=== PATIENT | female | born 1955 | race Caucasian/White ===

== ENCOUNTER 2016-06-23 12:03 | Observation (INO) ==
[2016-06-23 13:27] LABS: Basophils # 0.1 K/mcL (0.0-0.2); Basophils % 1.1 %; Eosinophils # 0.2 K/mcL (0.0-0.6); Hematocrit 39.6 % (35.3-44.9); Hemoglobin 13.2 g/dL (11.5-15.4); Immature Granulocytes % 0.4 % (0-4); Lymphocytes # 1.8 K/mcL (0.6-4.6); Lymphocytes % 32.1 %; Mean Corpuscular HGB Conc 33.3 g/dL (31.6-35.5); Mean Corpuscular Hemoglobin 28.5 pg (28.0-33.3); Mean Corpuscular Volume 85.5 fL (83.0-100.0); Mean Platelet Volume 8.9 fL (9.4-12.4); Monocytes # 0.5 K/mcL (0.0-1.3); Monocytes % 8.6 %; Neutrophils # 3.1 K/mcL (1.6-8.9); Platelet Count 270 K/mcL (140-400); Red Blood Count 4.63 M/mcL (3.82-4.97); Red Cell Distribution Width 12.8 % (11.5-14.5); Segmented Neutrophils % 54.8 %
[2016-06-23 13:31] LABS: Prothrombin Time 11.3 Seconds (9.4-12.1)
[2016-06-23 13:34] LABS: Activated Partial Thrombo Time 27.6 Seconds (26.0-36.0)
[2016-06-23 13:38] LABS: BUN/Creatinine Ratio 16 (6-26); Blood Urea Nitrogen 12 mg/dL (7-20); Calcium 9.4 mg/dL (8.6-10.8); Carbon Dioxide 29 mEq/L (19-29); Chloride 106 mEq/L (98-109); Glucose 90 mg/dL (70-99); Osmolality,Calculated 289 (280-300); Potassium 3.8 mEq/L (3.5-4.5); Sodium 140 mEq/L (136-145); eGFR For African Americans > 60 (> 60); eGFR For Non-African Americans > 60 (> 60)
[2016-06-23] MEDS ORDERED: Aspirin 81 MG TAB.CHEW PO STA (14:05)
--- NOTE | 2016-06-23 14:05 | Emergency Department Note ---
Disposition Clinical Impression: Palpitations Chest pain Qualifiers: Chest pain type: unspecified Qualified Code(s): R07.9 - Chest pain, unspecified Disposition: Admitted As Inpatient Referrals: Tima Brower Jr, MD [Primary Care Provider] - Forms: ED Satisfaction Letter Chest Pain HPI - General Chief Complaint: ED Chest Pain Stated Complaint: High HR/BP/ Chest Pain Time Seen by Provider: 06/23/16 12:55 Source: patient Limitations: no limitations Vital Signs Reviewed: Yes Nursing Notes Reviewed: Yes - History of Present Illness Pt complaint: chest pain Onset (ago): hour(s) (4) Duration: intermittent Onset: during rest Pain Location: substernal Severity scale (1-10): 2 Quality: tightness Pain Radiation: none Improves with: nothing Worsens with: nothing Associated symptoms: Denies: nausea, vomiting Treatments prior to arrival chest pain: none - Related Data Home Medications Medication Instructions Recorded Confirmed No Known Home Drugs 06/17/15 06/17/15 Allergies Allergy/AdvReac Type Severity Reaction Status Date / Time clindamycin Allergy Rash Verified 06/17/15 11:46 All systems ED: reviewed and negative except as stated. Constitutional: Denies: fever, chills, weakness Cardiovascular: Reports: chest pain, palpitations Respiratory: Denies: sputum production Gastrointestinal: Denies: abdominal pain Chest Pain PMH - Past Medical History Medical history: Reports: no medical history Surgical history: Reports: non-contributory Psychiatric history: Reports: anxiety - Social History Smoking Status: Former smoker Alcohol use: Reports: occasionally Drug use: Reports: none Physical Exam - General Limitations: no limitations General appearance: alert - Head Head exam: atraumatic, normocephalic, normal inspection - Eye Eye exam: Present: normal appearance, PERRL, EOMI - Expanded Eye Exam Pupils: Left: reactive - ENT ENT exam: normal exam, normal oropharynx, mucous membranes moist - Expanded ENT Exam External ear exam: Present: normal external inspection Mouth exam: Present: normal external inspection Teeth exam: Present: normal inspection Throat exam: Present: normal inspection - Neck Neck exam: Present: normal inspection, full ROM, trachea midline - Chest Chest inspection: Present: normal inspection, symmetric chest wall rise - Respiratory Respiratory exam: Present: normal lung sounds bilaterally - Cardiovascular Cardiovascular exam: Present: regular rate, normal rhythm, normal heart sounds - Abdominal Exam Abdominal exam: Present: soft, Non-Tender. Absent: tenderness, distention, guarding, rebound, rigidity - Extremities Exam Extremities exam: Present: normal inspection, full ROM. Absent: tenderness, pedal edema - Expanded Upper Extremity Exam Shoulder exam: Present: normal inspection, full ROM Arm exam: Present: normal inspection, full ROM Elbow exam: Present: normal inspection, full ROM Forearm/Wrist exam: Present: normal inspection, full ROM Hand exam: Present: normal inspection, full ROM Vascular exam: Normal: capillary refill, radial pulse - Expanded Lower Extremity Exam Hip/Pelvis exam: Present: normal inspection, full ROM Upper leg exam: Present: normal inspection, full ROM Knee exam: Present: normal inspection, full ROM Lower leg exam: Present: normal inspection, full ROM Ankle exam: Present: normal inspection, full ROM Foot/toe exam: Present: normal inspection, full ROM Neurovascular/Tendon exam: Absent: motor deficit, sensory deficit, tendon deficit - Back Exam Back exam: Present: normal inspection, full ROM. Absent: tenderness - Neurological Exam Neurological exam: Present: alert, oriented X3 - Expanded Neurological Exam Patient oriented to: Present: person, place, time Coma Scale Eye Opening: Spontaneous Coma Scale Motor Response: Obeys Commands Coma Scale Verbal Response: Oriented Coma Scale Total: 15 - Psychiatric Psychiatric exam: Present: normal affect, normal mood - Skin Skin exam: Present: warm, dry, intact, normal color Course Vital Signs Temperature 97.5 F L 06/23/16 12:05 Pulse Rate 86 06/23/16 12:05 Respiratory Rate 16 06/23/16 12:05 Blood Pressure 150/85 06/23/16 12:05 O2 Sat by Pulse Oximetry 100 06/23/16 12:05 Temperature 97.5 F L 06/23/16 12:05 Pulse Rate 67 06/23/16 14:01 Respiratory Rate 16 06/23/16 14:01 Blood Pressure 131/74 06/23/16 14:01 O2 Sat by Pulse Oximetry 98 06/23/16 14:01 Oxygen Delivery Oxygen Delivery Room Air Chest Pain - Differential Diagnosis Likely: pneumothorax, stable angina, unstable angina pectoris, atypical chest pain, st elevation myocardial infraction, chest pain - Medical Records Medical records reviewed: Yes I reviewed the patient's medical records. - Lab Data Lab results reviewed: Yes I reviewed the patient's lab results. Result diagrams: 06/23/16 13:10 06/23/16 13:10 Lab Results 06/23/16 06/23/16 06/23/16 Range/Units 13:10 13:10 13:10 WBC 5.7 (4.3-11.1) K/mcL RBC 4.63 (3.82-4.97) M/mcL Hgb 13.2 (11.5-15.4) g/dL Hct 39.6 (35.3-44.9) % MCV 85.5 (83.0-100.0) fL MCH 28.5 (28.0-33.3) pg MCHC 33.3 (31.6-35.5) g/dL RDW 12.8 (11.5-14.5) % Plt Count 270 (140-400) K/mcL MPV 8.9 L (9.4-12.4) fL Immature Gran % 0.4 (0-4) % Seg Neutrophils % 54.8 % Lymphocytes % 32.1 % Monocytes % 8.6 % Eosinophils % 3.0 % Basophils % 1.1 % Neutrophils # 3.1 (1.6-8.9) K/mcL Lymphocytes # 1.8 (0.6-4.6) K/mcL Monocytes # 0.5 (0.0-1.3) K/mcL Eosinophils # 0.2 (0.0-0.6) K/mcL Basophils # 0.1 (0.0-0.2) K/mcL PT 11.3 (9.4-12.1) Seconds INR 1.0 APTT 27.6 (26.0-36.0) Seconds Sodium 140 (136-145) mEq/L Potassium 3.8 (3.5-4.5) mEq/L Chloride 106 (98-109) mEq/L Carbon Dioxide 29 (19-29) mEq/L BUN 12 (7-20) mg/dL Creatinine 0.75 (0.57-1.11) mg/dL Est GFR ( Amer) > 60 (> 60) Est GFR (Non-Af Amer) > 60 (> 60) BUN/Creatinine Ratio 16 (6-26) Glucose 90 (70-99) mg/dL Calculated Osmolality 289 (280-300) Calcium 9.4 (8.6-10.8) mg/dL Troponin I (0-0.03) ng/mL 06/23/16 Range/Units 13:10 WBC (4.3-11.1) K/mcL RBC (3.82-4.97) M/mcL Hgb (11.5-15.4) g/dL Hct (35.3-44.9) % MCV (83.0-100.0) fL MCH (28.0-33.3) pg MCHC (31.6-35.5) g/dL RDW (11.5-14.5) % Plt Count (140-400) K/mcL MPV (9.4-12.4) fL Immature Gran % (0-4) % Seg Neutrophils % % Lymphocytes % % Monocytes % % Eosinophils % % Basophils % % Neutrophils # (1.6-8.9) K/mcL Lymphocytes # (0.6-4.6) K/mcL Monocytes # (0.0-1.3) K/mcL Eosinophils # (0.0-0.6) K/mcL Basophils # (0.0-0.2) K/mcL PT (9.4-12.1) Seconds INR APTT (26.0-36.0) Seconds Sodium (136-145) mEq/L Potassium (3.5-4.5) mEq/L Chloride (98-109) mEq/L Carbon Dioxide (19-29) mEq/L BUN (7-20) mg/dL Creatinine (0.57-1.11) mg/dL Est GFR ( Amer) (> 60) Est GFR (Non-Af Amer) (> 60) BUN/Creatinine Ratio (6-26) Glucose (70-99) mg/dL Calculated Osmolality (280-300) Calcium (8.6-10.8) mg/dL Troponin I 0.00 (0-0.03) ng/mL - Radiology Data Radiology results reviewed: Yes I reviewed the patient's radiology results. - EKG Data EKG attestation: Yes I reviewed and interpreted this EKG. EKG shows normal: sinus rhythm Rate: normal Rhythm: NSR Interpretation: unchanged when compared to prior tracing (date) (06/12/2016), nonspecific ST-T wave changes
[2016-06-23] MEDS ORDERED: Acetaminophen 325 MG TABLET PO PRN (14:57)
[2016-06-23] MEDS ORDERED: Naloxone 0.4 MG/ML INJ IVP PRN (14:57)
[2016-06-23] MEDS ORDERED: Famotidine 20 MG TABLET PO PRN (15:00)
--- NOTE | 2016-06-23 15:19 | Internal Med History&Physical ---
<Nicole Paz M - Last Filed: 06/23/16 23:53> Date of Encounter: 06/23/16 Time of Encounter: 15:11 Assessment and Plan (1) Chest pain Status: Acute Patient reporting chest pressure in her mid-sternum, non-radiating that comes and goes. Reports shortness of breath with exertion and while eating. EKG showed normal sinus rhythm, initial troponin negative at 0.00. D-Dimer ordered and was negative at 280. continuous cardiac care nurse serial troponins echocardiogram and stress test in the morning. Qualifiers: Chest pain type: precordial pain Qualified Code(s): R07.2 - Precordial pain (2) Fatigue Status: Acute Patient reports gradual onset of fatigue after returning from vacation sailing in the [facility]. Initially, she had symptoms including sore throat, mucous production and swollen lymph nodes, but as her other symptoms have resolved, her fatigue has worsened. A friend she was travelling with also had similar symptoms and has reportedly been to an infectious disease specialist, but patient does not know the outcome of the work up. Fatigue may be related to viral illness contracted while on vacation. She denies any fever, chills or sweats. Will rule out cardiac source with cardiac care nurse and tropons orthostatic vital signs TSH [place] test. Qualifiers: Fatigue type: unspecified Qualified Code(s): R53.83 - Other fatigue (3) Palpitations Status: Acute Patient reports being woken from sleep this morning due to palpitations, and having episodes where she checked her blood pressure and heart rate and they were elevated above normal levels, which is her usual baseline. Heart rate has been 70s-80s here today, while blood pressure is mildly elevated to 140s-150s/ 90s. EKG showed NSR. continuous cardiac care nurse serial troponins orthostatic vital signs. echocardiogram and stress test in the morning. (4) DVT prophylaxis Status: Acute Encourage ambulation anti-embolic stockings Lovenox 40m SQ daily Internal Medicine - H&P: HPI Chief complaint: palpitations, chest discomfort Admitted From: Emergency Dept Plans for Post Hospital Care: Home History of present illness: Ms. Carroll is a 60 year old female with no significant medical history who presented to the emergency department today with complaints of fatigue, comfort , shortness of breath. Patient reports she was on vacation in the [facility] and returned mid May, and has had a gradual onset of fatigue since then. She initially had upper respiratory symptoms including a sore throat, mucus production, and sinus pressure, along with swollen lymph nodes. Those symptoms have resolved except she still feels that she has swollen lymph nodes. She reports that she has had shortness of breath while eating and with activity, she has had leg weakness on and off, she had occasional lightheadedness. He reports episodes where she does not feel well when she checks her blood pressure and her heart rate or heart rate is elevated into the 1 teens and her blood pressures elevated to the 150s over 100. Her normal blood pressure is in the low 100s over 70s. She has experienced some palpitations, and actually woke this morning because of her palpitations. She reports when she is having these episodes of high blood pressure and elevated heart rate her hands and feet feel tingly and cold. She also has a feeling of pressure in her mid chest and nonradiating and it comes and goes. She denies any fever, chills, sweats, or body aches. She denies any difficulty with speaking or swallowing. She reports another person on her trip had similar symptoms and has been worked up without any outcome that she is aware. She does report having been bitten by mosquitoes while she was on her trip to the [facility]. Evaluation in the emergency department included a troponin which was negative at 0.00 EKG, that showed normal sinus rhythm. Blood work was grossly normal. On exam, patient is alert and oriented, in no acute distress. Is regular rate and rhythm. Clear bilaterally to auscultation. She has equal strength bilaterally in upper and lower extremities. Past Med Surg Social Fam HX - Past Medical History Source: patient Medical history: GERD Psychiatric history: anxiety - Past Surgical History Surgical History: no surgical history, non-contributory - Social History Smoking Status: Former smoker Smokeless Tobacco Status: No Alcohol use: occasionally Drug use: none Current living situation: Home - Independent Activity Level: Independent ambulation Recent Out of Country Travel Within the Last 8 Weeks: Yes - Family History Mother Living Status: Age at : 78 Cause of : CVA Father Living Status: Age at : 66 Cause of : Dementia Internal Medicine - H&P: Meds Ranitidine HCl [Zantac] 150 mg PO DAILY PRN 03/21/17 [History] Ativan 0.5 mg PO BID PRN #14 06/24/16 [Rx] Paroxetine HCl [Paxil] 20 mg PO DAILY #30 tablet 06/24/16 [Rx] Allergies clindamycin Allergy (Intermediate, Verified 06/23/16 16:27) Rash All Systems PM: A 10-system review of systems was performed and is negative for pertinent findings except as documented above in the HPI. - Constitutional Constitutional: fatigue, weakness, no chills, no fever(s), no night sweats - EENT Eyes: no blurry vision, no change in vision, no discharge, no pain, no photophobia Ears: no ear discharge, no ear pain, no tinnitus Nose, mouth and throat: no dysphagia, no nasal discharge, no neck pain, no sore throat Additional comments: Reports Sore throat and mucus production a couple weeks ago, now resolved. - Cardiovascular Cardiovascular ROS IM: chest pain ("pressure"), dyspnea on exertion, lightheadedness, palpitations, no diaphoresis, no dyspnea, no syncope - Respiratory Respiratory: dyspnea on exertion, no cough, no dyspnea, no wheezing, no excessive phlegm production - Gastrointestinal Gastrointestinal: nausea, no abdominal pain, no diarrhea, no hematemesis, no hematochezia, no melena, no vomiting - Genitourinary Genitourinary: no change in urinary stream, no dysuria, no flank pain, no hematuria - Musculoskeletal Musculoskeletal ROS IM: tingling (occasional tingling of hands and feet), no numbness - Integumentary Integumentary IM: no rash, no unusual bruising - Neurological Neurological ROS: no confusion, no convulsions, no focal weakness, no numbness, no tingling, no tremor(s) - Hematologic/Lymphatic Hematologic/Lymphatic: no easy bruising - Constitutional Vitals: Temp Pulse Resp BP Pulse Ox 97.5 F L 67 16 130/81 98 06/23/16 12:05 06/23/16 15:10 06/23/16 15:10 06/23/16 15:10 06/23/16 15:10 General appearance: Present: A&O X 3, pleasant, no acute distress - Head Head exam: Present: atraumatic, normocephalic - Eye Eye exam: Present: PERRL, conjuntiva pink, sclera anicteric Pupils: Present: PERRL - Neck Neck exam general surgery: Present: supple, trachea midline. Absent: lymphadenopathy - Respiratory Respiratory exam: Present: CTAB. Absent: accessory muscle use, rales, rhonchi, wheezes - Cardiovascular Cardiovascular exam: Present: RRR, +S1, +S2. Absent: diastolic murmur, gallop, rubs, systolic murmur - GI/Abdominal GI/Abdominal exam: Present: normal bowel sounds, soft, no peritoneal signs. Absent: distended, tenderness - Extremities Exam Extremities exam: Present: warm, radial pulses palpable and symetrical. Absent : calf tenderness, cyanotic, pedal edema - Neurological Exam Neurological exam: Present: CN II-XII intact, oriented X3, no focal deficits. Absent: facial droop, speech deficit - Skin Skin exam: Present: dry, intact Internal Med - H&P Results - Labs CBC & Chem 7: 06/23/16 13:10 06/23/16 13:10 <Estelle Menendez - Last Filed: 07/03/16 22:13> Date of Encounter: 07/03/16 Internal Medicine - H&P: HPI History of present illness: Ms. Carroll is a 60 year old female All Systems PM: A 10-system review of systems was performed and is negative for pertinent findings except as documented above in the HPI. - Constitutional Vitals: Temp Pulse Resp BP Pulse Ox 98.1 F 72 16 122/74 96 06/24/16 07:37 06/24/16 07:37 06/24/16 07:37 06/24/16 07:37 06/24/16 07:37 Internal Med - H&P Results - Labs CBC & Chem 7: 06/24/16 01:34 06/24/16 01:34 - Attending Attestation Patient seen and examined, agree with assessment and plan of GERONIMO Paz. Patient with palpitations and chest pain following URI she developed while traveling. D dimer negative in low risk patient, essentially ruling out PE. Will obtain stress test to rule out cardiac etiology in AM.
--- NOTE | 2016-06-23 15:52 | Electrocardiograph Report ---
[address] [address] Test Date: 2016-06-23 Pat Name: Helena Carroll Department: 102 Room: 2A Gender: F Environmental Planner: : 1955 Requested By: Heber Parada Order Number: [id number] Reading MD: Idania Roche Measurements Intervals [place] Rate: 85 P: 80 [place]: 154 QRS: 54 QRSD: 78 T: 55 QT: 347 QTc: 389 Interpretive Statements SINUS RHYTHM MINIMAL ST DEPRESSION [0.025+ mV ST DEPRESSION] Electronically Signed On 06-23-2016 15:49:56 EDT by Idania Roche
[2016-06-23] MEDS ORDERED: *HR* LORazepam 0.5 MG TABLET PO PRN (19:25)
[2016-06-24 02:08] LABS: Basophils # 0.1 K/mcL (0.0-0.2); Basophils % 0.8 %; Eosinophils # 0.2 K/mcL (0.0-0.6); Eosinophils % 3.7 %; Hematocrit 37.2 % (35.3-44.9); Hemoglobin 12.2 g/dL (11.5-15.4); Immature Granulocytes % 0.2 % (0-4); Lymphocytes # 2.5 K/mcL (0.6-4.6); Lymphocytes % 40.2 %; Mean Corpuscular HGB Conc 32.8 g/dL (31.6-35.5); Mean Corpuscular Volume 85.5 fL (83.0-100.0); Mean Platelet Volume 9.3 fL (9.4-12.4); Monocytes # 0.6 K/mcL (0.0-1.3); Neutrophils # 2.9 K/mcL (1.6-8.9); Platelet Count 235 K/mcL (140-400); Red Blood Count 4.35 M/mcL (3.82-4.97); Red Cell Distribution Width 12.7 % (11.5-14.5); Segmented Neutrophils % 46.1 %
[2016-06-24 02:24] LABS: Alanine Aminotransferase 12 Units/L (0-55); Albumin 3.4 g/dL (3.5-5.0); Albumin/Globulin Ratio 1.1 (1.1-2.2); Alkaline Phosphatase 54 Units/L (38-126); Aspartate Amino Transferase 21 Units/L (5-34); BUN/Creatinine Ratio 14 (6-26); Bilirubin,Direct 0.1 mg/dL (0.0-0.5); Bilirubin,Indirect 0.3 mg/dL (0.0-1.2); Bilirubin,Total 0.4 mg/dL (0.2-1.2); Blood Urea Nitrogen 10 mg/dL (7-20); Calcium 8.7 mg/dL (8.6-10.8); Carbon Dioxide 29 mEq/L (19-29); Chloride 107 mEq/L (98-109); Glucose 88 mg/dL (70-99); Osmolality,Calculated 294 (280-300); Potassium 4.2 mEq/L (3.5-4.5); Sodium 143 mEq/L (136-145); Total Protein 6.4 g/dL (6.0-8.3); eGFR For African Americans > 60 (> 60); eGFR For Non-African Americans > 60 (> 60)
[2016-06-24] MEDS ORDERED: *HR* Enoxaparin 40 MG/0.4 ML SYRINGE SQ SCH (07:00)
[2016-06-24 07:38] VITALS: BP 122/74
--- NOTE | 2016-06-24 10:39 | Nuclear Medicine Stress Report ---
Exercise Nuclear Stress Name: Helena Carroll Date of Study: 06/24/2016 Date: 1955 Ht: 69.0 in Medical Record#: [id number] Age: 60 Wt: 143.0 lb Gender: Female Order #: [id number] Location: [facility] Room: [facility] Supervising Provider: Jocelyne Mtz CNP Reading Physician: Vincent Benavides DO, FACC, FASE, FASNC Primary Care Physician: Tima Brower MD Stress Technologist: Scottie Rudolph KITCHEN AIDE, CCT Sewing Line Baler: Porfirio Aquino Indications: Hypertension Impression: Exercise ECG is negative for ischemia. The exercise capacity was good. Patient had no chest pain during stress. Gated EF = 75%. Perfusion imaging was negative for ischemia or infarct. Stress Test Summary: Stress Test Type: Treadmill Protocol: Tavo Baseline Information: Initial Heart Rate: 107 Blood Pressure: 136/90 Stress Information: Stress Time: 7 min 00 sec Test Terminated Due to (primary): Fatigue Maximum Blood Pressure: 158/90 Maximum Heart Rate: 139 Percent Maximum Heart Rate Achieved: 88 Double Product: 21,962 METS Reached: 10.1 Nuclear Summary: SPECT myocardial perfusion imaging using Tc99m Sestamibi given intravenously was performed at rest and following cardiac stress testing. The resting images were obtained following initial dose of 11.0 mCi. Following stress an additional dose of 35.1 mCi was given at peak exercise or 30 seconds post regadenoson infusion. Medication Given: Time Medication Dose Units Route Findings: Stress Note * Resting ECG demonstrated normal sinus rhythm. * No baseline arrhythmias were noted. * Exercise ECG is negative for ischemia. * Rare PVCs noted during stress. * The exercise capacity was good. * Patient had no chest pain during stress. * Normal hemodynamic responses to exercise. Study Quality * Study quality is average. Gated EF % * Gated EF = 75%. Left Ventricle * The left ventricle is not dilated. LVEDV = 68 mL. NORMALS * Normal wall motion. * Normal segmental perfusion in rest. * Normal segmental perfusion in stress. TID * No evidence of transient ischemic dilatation. TID ratio = 1.06. Lung Uptake * There is no evidence of increase lung uptake. Updated by Vincent Benavides DO, FACC, FASE, FASNC on 06/24/2016 10:29:18 AM electronically signed on 06/24/2016 10:33:41 AM with status of Final
--- NOTE | 2016-06-24 11:58 | ECHO - Doppler Report ---
Echo with Saline Contrast Name: Helena Carroll Date of Study: 06/23/2016 Date: 1955 Ht: 69.0 in Medical Record#: [id number] Age: 60 Wt: 140.0 lb Gender: Female BSA: 1.78 Order #: [id number] Location: [facility] Room #: 2A45 Reading Physician: Vincent Benavides DO, FACShelby, GENEVIEVE, DILLON Body Artist: Selene Sarah RDCS Ordering Physician: Nicole Paz CNP Primary Physician: Tima Brower MD Indications: Chest pressure, Dyspnea on exertion Impressions: LVEF 65%. Normal LV chamber size, wall thickness and function. Normal left ventricular diastolic function. Normal right ventricular structure and function. No evidence of PFO with agitated saline contrast. No evidence of pulmonary hypertension. No significant valvular dysfunction. Left Ventricular Wall Motion: Rest Echo Findings All wall segments showed normal motion. Findings: Study Quality * Technically adequate exam. ECG Findings * Normal sinus rhythm. Left Ventricle * LVEF 65%. * Normal LV chamber size, wall thickness and function. * Normal left ventricular diastolic function. Right Ventricle * Normal right ventricular structure and function. Left Atrium * Normal left atrial size. Right Atrium * Normal right atrial size. Interatrial Septum * No evidence of PFO with agitated saline contrast. Aortic Valve * Aortic valve not well visualized. * No aortic regurgitation. * No aortic stenosis. Mitral Valve * Normal mitral valve structure and function. * No mitral regurgitation. * No mitral stenosis. Tricuspid Valve * Normal tricuspid valve structure and function. * Trace tricuspid regurgitation. * No evidence of pulmonary hypertension. Pulmonic Valve * Pulmonic valve not well visualized. Aorta * Normally sized aortic root. Pericardium * The pericardium appears normal. IVC * Normal IVC dimensions and inspiratory collapse. Pulmonary Artery * Normal visualized portions of the main pulmonary artery. History Contrast: Agitated saline 20 ml. Measurements: BP: 130/ 81 2D Normal Values RVIDd: 1.85 cm <2.7 cm IVSd: .71 cm 0.6 - 1.0 cm LVIDd: 4.79 cm 3.7 - 5.6 cm LVPWd: .74 cm 0.6 - 1.1 cm LVIDs: 2.73 cm 1.5 - 3.6 cm AO: 3.10 cm < 4.0 cm LA: 2.70 cm 2.0 - 4.0cm %FS: 43.00 cm >25 % LA volume: 34 Mitral Valve Peak E:.88 m/sec Peak A:.72 m/sec E/A Ratio:1.2 Peak E' Lat Norbert:15.2 cm/s Peak E' Med Norbert:9.17 cm/s E/E' Lat Ratio:5.8 E/E' Med Ratio:9.6 Tricuspid Valve TV Regurg Peak Grad: 10.00mmHg TV Regurg Peak Norbert: 1.62m/sec Updated by Vincent Benavides DO, FACShelby, GENEVIEVE, DILLON on 06/24/2016 11:52:51 AM electronically signed on 06/24/2016 11:53:22 AM with status of Final Wall Motion Lennon: 1=Normal, 2=Hypokinesis, 3=Akinesis, 4=Dyskinesis, 5=Aneurysmal, 6=Hyperkinetic, X=Not Visualized (Blank)=Missing
--- NOTE | 2016-06-24 13:29 | Discharge Summary ---
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 However they do not fit the definition or symptom profile as one would expect with Zika virus (2) Chest pain Priority: Primary Status: Acute Comments: #1 echocardiogram was normal #2 stress testing was good she had good to excellent exercise capacity ECG was negative and nuclear medicine cardiac images were good as well Qualifiers: Chest pain type: precordial pain Qualified Code(s): R07.2 - Precordial pain (3) Fatigue Priority: Primary Status: Acute Qualifiers: Fatigue type: postviral fatigue syndrome Qualified Code(s): G93.3 - Postviral fatigue syndrome (4) History of gastroesophageal reflux (GERD) Priority: Secondary Status: Chronic (5) Anxiety Priority: Secondary Status: Acute Comments: She is concerned about some anxiety. She got an antianxiety medication for some resolution of some of her symptoms yesterday, give her small prescription of Ativan until she sees her primary care provider - Discharge Medications Prescriptions: Ativan 0.5 mg PO BID PRN #14 PRN Reason: Anxiety Home Medications: Ranitidine HCl [Zantac] 150 mg PO DAILY PRN 06/23/16 [History] Ativan 0.5 mg PO BID PRN #14 06/24/16 [Rx] Allergies/Adverse Reactions: Allergies clindamycin Allergy (Intermediate, Verified 06/23/16 16:27) Rash Procedures/tests Complete & Pending: Procedures Performed prior 72 hours Category Date Time Status NM chelsey perf SPECT multi [NM] Routine Exams 06/23/16 15:39 Taken EV echocardiogram Routine Y 06/23/16 15:38 Completed SP exercise nuclear stress Routine Y 06/24/16 07:30 Completed Date of admission: 06/23/16 14:34 Primary care physician: Tima Brower Jr, MD - Patient Status Disposition: Home, Self-Care Condition: Good Functional capacity at discharge: independent ambulation Overall status at discharge: patient is not back to baseline - Discharge Instructions Follow Up With: Tima Brower Jr, MD [Primary Care Provider] - 06/29/16 4:15 pm (Please follow up as schedule..with ) - Diet and Activity Activity: increase activity as tolerated, return to work once cleared by your PCP/specialist Diet: advance to your usual diet Hospital course: Ms. Carroll is a 60 year old female was admitted to the hospital started on serial troponins were unremarkable. Laboratories. Be normal. She describes chronic fatigue and just overwhelming tiredness. There is no current fever. There is no current rashes. There is no current headaches. One of the concerns I have is that one for traveling companions on her last trip come down with similar symptoms. With her current white count being normal and not decreased do think she is in a current phase of an acute viral infection. Rather I think she is in a post viral fatigue syndrome Stress testing was unremarkable. Some of the chest tightness she has not conservatively due to her past history of gastroesophageal reflux disease as she does have some chronic chest tightness from time to time that she blames on that. She is currently on some Zantac 150 twice daily. I will leave that in place for right now higher to her seeing her primary care physician soon. - Time Spent with Patient Total time spent providing and/or coordinating discharge services: - Constitutional Vitals: Temp Pulse Resp BP Pulse Ox 98.1 F 72 16 122/74 96 06/24/16 07:37 06/24/16 07:37 06/24/16 07:37 06/24/16 07:37 06/24/16 07:37 General appearance: Present: A&O X 3, pleasant, no acute distress - Respiratory Respiratory exam: Present: CTAB. Absent: rhonchi, wheezes - Cardiovascular Cardiovascular exam: Present: RRR, +S1, +S2 - VTE Documentation of Mechanical Device: Graduated compression elastic hosiery
== END 2016-06-24 14:18 | disposition home or self-care (01) ==
LOC: 2ANU 12:03 → EMEROO 12:03 → 2ANU 16:17
PROVIDERS: ADMIT Internal Medicine; ATTEND Internal Medicine